=== PATIENT | male | born 2005 | race Caucasian/White ===

== ENCOUNTER 2023-05-08 15:18 | Outpatient (CLI) | payer BC ==
[~2023-05-08 15:18] MED LIST: Magnevist 469MG/ML 20 ML VIAL ONE
== END 2023-05-08 15:19 | disposition home or self-care (01) ==
LOC: CSHMRI 15:18
PROVIDERS: ATTEND Specialist
DX: R55 Syncope and collapse (principal)
CPT/HCPCS: 70553; A9579